=== PATIENT | female | born 1995 | race Caucasian/White ===

== ENCOUNTER 2019-02-13 01:56 | Emergency (ER) | payer BC, OTHER ==
[~2019-02-13] VITALS: Ht 165.1 cm; Wt 61.4 kg
[~2019-02-13 01:56] MED LIST: ACET-141 PO; IBUP-1545 PO
[2019-02-13 02:02] VITALS: BP 115/56; PULSE 66; RESP 17; Ht 165.1 cm; Wt 61.4 kg
== END 2019-02-13 06:10 | disposition home or self-care (01) ==
LOC: E/R 01:56
DX: S06.0X0A Concussion without loss of consciousness, initial encounter (principal); F84.0 Autistic disorder; W18.2XXA Fall in (into) shower or empty bathtub, initial encounter; Y92.9 Unspecified place or not applicable
CPT/HCPCS: 70450; Z7502